=== PATIENT | female | born 1995 | race Two or more races ===

== ENCOUNTER 2023-12-30 14:02 | Emergency (ER) | payer MEDICAID, OTHER ==
[~2023-12-30] VITALS: Ht 152.4 cm; Wt 68.1 kg
[2023-12-30 14:15] VITALS: BP 111/71; PULSE 80; RESP 18; O2SAT 97
[2023-12-30] MEDS ORDERED: LIDO5CRE14 EX (16:42)
[2023-12-30] MEDS ORDERED: METH-1181 PO (16:42)
[2023-12-30] MEDS ORDERED: NAPR-957 PO (16:42)
== END 2023-12-30 17:13 | disposition home or self-care (01) ==
LOC: EDBD 14:02 → ER 14:02
DX: M79.10 Myalgia, unspecified site (principal); M54.2 Cervicalgia; M54.50 Low back pain, unspecified; Z79.899 Other long term (current) drug therapy; V89.2XXA Person injured in unspecified motor-vehicle accident, traffic, initial encounter; Y93.89 Activity, other specified; Y92.410 Unspecified street and highway as the place of occurrence of the external cause; Y99.8 Other external cause status